=== PATIENT | male | born 1975 | race Caucasian/White ===

== ENCOUNTER 2017-09-02 22:40 | Emergency (ER) | payer OTHER ==
[~2017-09-02] VITALS: Ht 193 cm; Wt 90.7 kg
[2017-09-02 22:50] VITALS: BP_SYST 160
--- NOTE | 2017-09-02 22:52 | NUR ---
Placed in hallway. Report given to Eleanor SOLORZANO.
--- NOTE | 2017-09-02 23:06 | NUR ---
Patient refused blood alcohol draw. Patient refused to sign the consent.
--- NOTE | 2017-09-02 23:09 | NUR ---
Patient left the ER in custody of law officer. Ambulated with steady gait.
== END 2017-09-02 23:09 ==
LOC: SED 22:40
DX: Z02.89 Encounter for other administrative examinations (principal)
CPT/HCPCS: 99283